=== PATIENT | male | born 1980 | race African-American/Black ===

== ENCOUNTER 2016-06-13 23:45 | Emergency (ER) | payer OTHER ==
[~2016-06-13] VITALS: Ht 170.2 cm; Wt 90.0 kg
[~2016-06-13 23:45] MED LIST: COLACE100 MG PO; MOTRIN600 MG PO; PERCOCET 5/31 TABLET PO; PROCTOFOAM15 GM TP; ULTRAM50 MG PO; ZOFRAN4 MG PO
[2016-06-14 00:17] LABS: CHLORIDE 104 mEq/L (99-109); POTASSIUM 3.6 mEq/L (3.7-5.4); SODIUM 139 mEq/L (136-147)
[2016-06-14 00:18] LABS: GLUCOSE 87 mg/dL (70-99)
[2016-06-14 00:20] LABS: ANION GAP 14 MEQ/L (2-14)
[2016-06-14 00:22] LABS: GFR ESTIMATE (CALCULATED) > 59 mL/min/
[2016-06-14 00:23] LABS: UREA NITROGEN (BUN) 14 mg/dL (9-23)
[2016-06-14 00:49] LABS: HEMATOCRIT 43.9 % (38.0-50.0); MCH 31.1 PG (29.0-34.0); MCHC 34.4 G/DL (30.0-36.0); MCV 90.3 FL (86-99); MEAN PLAT.VOLUME 9.7 uM^3 (9.0-12.4); PLATELET COUNT 197 K/uL (156-360); RBC DIS.WIDTH-CV 12.4 % (11.8-14.6); RED BLOOD COUNT 4.86 M/uL (4.00-5.50); WHITE BLOOD COUNT 6.4 K/uL (4.1-10.2)
[2016-06-14 01:20] LABS: TROP-I INTERPRETATION NEGATIVE; TROPONIN-I < 0.01 ng/mL (0.0-0.30)
[2016-06-14 02:13] LABS: D-DIMER ELISA 0.25 mg/L FEU (< 0.57)
[2016-06-14 03:25] LABS: TROP-I INTERPRETATION NEGATIVE; TROPONIN-I < 0.01 ng/mL (0.0-0.30)
[2016-06-14 03:50] VITALS: BP 130/80
== END 2016-06-14 03:52 | disposition home or self-care (01) ==
LOC: EME 23:45
PROVIDERS: Emergency Medicine
DX: R07.9 Chest pain, unspecified (principal); E87.6 Hypokalemia; Z88.8 Allergy status to other drugs, medicaments and biological substances
CPT/HCPCS: 71020; 71275; 80048; 84484; 85027; 85379; 93005; 99281; 99284

== ENCOUNTER 2017-10-06 15:58 | Emergency (ER) | payer OTHER ==
[~2017-10-06] VITALS: Ht 170.2 cm; Wt 97.5 kg
[2017-10-06 16:37] LABS: HEMATOCRIT 40.6 % (38.0-50.0); HEMOGLOBIN 14.1 G/DL (12.5-16.6); MCH 30.6 PG (29.0-34.0); MCHC 34.7 G/DL (30.0-36.0); MCV 88.1 FL (86-99); PLATELET COUNT 182 K/uL (156-360); RBC DIS.WIDTH-CV 11.8 % (11.8-14.6); RBC DIS.WIDTH-SD 37.7 % (39-53); RED BLOOD COUNT 4.61 M/uL (4.00-5.50); WHITE BLOOD COUNT 6.2 K/uL (4.1-10.2)
[2017-10-06 16:46] LABS: CHLORIDE 107 mEq/L (99-109); POTASSIUM 4.1 mEq/L (3.7-5.4); SODIUM 140 mEq/L (136-147)
[2017-10-06 16:51] LABS: CREATININE 1.1 mg/dL (0.6-1.3); GFR ESTIMATE (CALCULATED) > 59 mL/min/ (58.99-99999)
[2017-10-06 16:52] LABS: UREA NITROGEN (BUN) 16 mg/dL (9-23)
[2017-10-06 16:55] LABS: D-DIMER ELISA < 150.00 ng/mLDDU (<230)
[2017-10-06 17:05] LABS: GLUCOSE 110 mg/dL (70-99)
[2017-10-06] MEDS ORDERED: FLONASE16 G1 BOTH NARES (17:51)
[2017-10-06] MEDS ORDERED: PREDNISONE20 MG PO (17:51)
[2017-10-06] MEDS ORDERED: VENTOLIN HFA18 GM IH (17:51)
[2017-10-06 18:21] VITALS: BP 112/72
== END 2017-10-06 18:22 | disposition home or self-care (01) ==
LOC: EXP 15:58 → EME 15:58 → EXP 18:22
DX: J30.9 Allergic rhinitis, unspecified (principal); Z88.8 Allergy status to other drugs, medicaments and biological substances
CPT/HCPCS: 71046; 80048; 85027; 85379; 94640; 99202; 99281; 99284

== ENCOUNTER 2017-11-14 15:35 | Emergency (ER) | payer OTHER ==
[~2017-11-14] VITALS: Ht 170.2 cm; Wt 94.5 kg
[~2017-11-14 15:35] MED LIST changes: +FLONASE16 G1 BOTH NARES; +PREDNISONE20 MG PO; +VENTOLIN HFA18 GM IH
[2017-11-14] MEDS ORDERED: VALIUM5 MG PO (17:41)
[2017-11-14] MEDS ORDERED: PERCOCET 5/31 TABLET PO (17:41)
[2017-11-14 17:57] VITALS: BP 124/88
== END 2017-11-14 17:59 | disposition home or self-care (01) ==
LOC: EME 15:35
DX: S39.012A Strain of muscle, fascia and tendon of lower back, initial encounter (principal); M62.830 Muscle spasm of back; X58.XXXA Exposure to other specified factors, initial encounter; Z88.8 Allergy status to other drugs, medicaments and biological substances
CPT/HCPCS: 71046; 99281; 99284; J1885; J3010